=== PATIENT | female | born 1985 | race Caucasian/White ===

== ENCOUNTER 2016-08-01 02:40 | Outpatient (CLI) | payer OTHER ==
[~2016-08-01] VITALS: Ht 170.2 cm; Wt 91.7 kg
[~2016-08-01 02:40] MED LIST: ACET500C5 PO
--- NOTE | 2016-08-01 03:46 | PN ---
Date/Time of Note Date/Time of Note DATE: 08/01/16 TIME: 03:42 OB Subjective Subjective Subjective 31 yo P0 @ 25 wks presents to "check her baby" she has no PNC no obstetric complaints- good FM, no VB,no LOF, no ctx patient c/o possible ankle pain OB Objective Objective Objective VS: WNl SVE- deferred FHT- Cat I Rebecca- no ctx Abdomen: WNL Heart Rate: 140's Accelerations: Accelerations Present Decelerations: No Decelerations Varibility: Moderate OB Assessment/Plan Other Assessment: 31 yo P0 @ approx 25 wks presents w no complaints, requesting sono - FHT reassuring Other plan: sono ordered for gestational age patient advised to start PNC patient advised to go to main ED regarding her ankle pain IVETH STERN MD August 01, 2016 03:46
[2016-08-01 04:02] VITALS: BP 119/63; PULSE 86; RESP 17; Ht 170.2 cm; Wt 91.7 kg
--- NOTE | 2016-08-01 05:03 | RADRPT ---
AMENDMENT: 08/01/2016 5:00:02 AM Roxana Garcia M.d 5. Breech presentation. PROCEDURE: US OB. CLINICAL INDICATION: labor TECHNIQUE: Multiple sonographic images of the pelvis were obtained. Transabdominal imaging only w as performed. The images were reviewed on a PACS workstation. COMPARISON: No prior studies are available for comparison. FINDINGS: There is a single live intrauterine gestation. Cardiac activity is present with 146 beats per minut e. position is breech. Measurements were made in order to determine age. The results are as follows: BPD = 6.67 cm HC = 24.00 cm AC = 20.39 cm FL = 4.71 cm. Estimated gestational age of approximately 25 weeks 6 days. The estimated date of delivery is 11/08/2016. The EFW = 811 g,60th %ile. The placenta is anterior. There is no evidence for an abruption or placenta previa. There are no adnexal masses. IMPRESSION: 1. Single live intrauterine gestation of approximately 25 weeks 6 days, by ultrasound criteria. 2. The estimated date of delivery is 11/08/2016. 3. The estimated weight is 811 g, 60th %ile. RPTAT: HH .Roxana Garcia MD, Date Time Electronically viewed and signed by .Roxana Garcia MD, MD on 08/01/2016 05:03 .G/
--- NOTE | 2016-08-01 05:35 | TRIAGE ---
OB Triage Datetime Report Generated by CPN: 08/01/2016 05:35 Datetime: 08/01/2016 05:01 Stage of : OB Triage Datetime: 08/01/2016 04:50 Stage of : OB Triage Datetime: 08/01/2016 04:30 Stage of : OB Triage Datetime: 08/01/2016 03:31 Stage of : OB Triage Labor Evaluation Frequency: X0 Monitor Mode: External Duration (sec)2399: X0 Resting Tone Carmine: Relaxed Contraction Comments: ABDOMEN SOFT ON PALPATION Heart Rate FHR Baseline Rate: 145 Monitor Mode: External US Variability: Moderate 6-25 bpm Accelerations: 15X15 Decelerations: None Category: Category I Comments: PT ACKNOWLEDGES MOVEMENT Datetime: 08/01/2016 03:27 Stage of : Labor Datetime: 08/01/2016 03:19 Time of Arrival: 08/01/2016 02:35 EGA: 25.0 Arrived By: Wheelchair Arrived From: Home Chief Complaint: PAIN AND SWELLING ON HER RIGHT ANKLE FELL 07/31/16; PATIENT ALSO CONCERNED OF BABY'S STATUS. REQUESTING ULTRASOUND. Movement: Present Contractions: Denies/Absent Contractions: NONE Rupture of Membranes: Denies Vaginal Bleeding: None Vaginal Discharge: Denies Abdominal Trauma: Not Applicable Patient Complaints: Other Time Provider Notified: 08/01/2016 03:25 Provider Notified: DR. STERN Initial Plan: EFM X2, US- WEIGHT Datetime: 08/01/2016 03:15 Stage of : OB Triage Assessment Type: Admission Assessment Maternal Assessment Level of Consciousness: Fully Conscious DTR's/Clonus: DTRs 2+; No Clonus Headache: Denies Blurred Vision: No Respiratory Effort: Unlabored; Regular Rhythm; Equal Expansion Breath Sounds, Left: Clear and Equal Breath Sounds, Right: Clear and Equal Nausea/Vomiting: Denies RUQ Epigastric Pain: Denies Lower Extremities Edema: Bilateral Lower Extremities Degree: 1+ Upper Extremities Edema: None Degree: None Facial Edema: None Temperature Route: Oral Fall Risk Assessment History of Falling: (0) No Secondary Diagnosis: (0) No Ambulatory Aid: (0) Bedrest/Nurse Assist IV Therapy: (0) No Gait: (0) Normal/Bedrest/Immobile Mental Status: (0) Oriented to Own Ability Fall Score: 0 Fall Risk Score Definition: No Risk: No action required Pain Assessment Pain Scale: 3 Pain Presence: Constant Pain Type: Ache Pain Location: Right Ankle Pain Goal: 0 Pain Relief Measures: Comfort Measures Datetime: 08/01/2016 03:11 Vaginal Exam Membrane Status: Intact
== END 2016-08-01 05:37 | disposition home or self-care (01) ==
LOC: OBT 02:40 → L-D 02:40 → OBT 05:37
PROVIDERS: ATTEND Obstetrics & Gynecology
DX: O35.9XX0 Maternal care for (suspected) fetal abnormality and damage, unspecified, not applicable or unspecified (principal); Z3A.25 25 weeks gestation of pregnancy
CPT/HCPCS: 76815; Z7500; G0463